=== PATIENT | male | born 1940 | race Caucasian/White ===

== ENCOUNTER 2024-12-16 12:50 | Outpatient (AMB) | payer MEDICARE, OTHER, SELFPAY ==
--- NOTE | 2024-12-16 12:52 | A.SPINEOV_ITS ---
Vital Signs 12/16/24 13:08 Height 6 ft 2 in Weight 221 lb BMI 28.4 Intake Visit Reasons: back pain Intake Note: Mr. Lay is here today c/o Low back pain/Difficulty walking. Local Truck Driver Required: No Allergies atorvastatin Allergy (Severe, Verified 12/16/24 13:11) Bodyache and Pain Physical Exam Vital Signs: BMI result Body Mass Index 28.4 Assessment & Plan Assessment & Plan (1) Balance disorder: Code(s): R26.89 - Other abnormalities of gait and mobility Category: Medical (2) Back pain: Code(s): M54.9 - Dorsalgia, unspecified Category: Medical Qualifiers: Back pain location: low back pain Chronicity: chronic Back pain laterality: midline Sciatica presence: without sciatica Qualified Code(s): M54.50 - Low back pain, unspecified; G89.29 - Other chronic pain Plan Dear colleague Thank you for referring John Lay to the office today with a chief complaint of balance problems. HPI: This 84-year-old male he is having to complains. The 1st on his central back pain in the lumbosacral area without radiation. The pain is always present independent of activity. The 2nd complaint is balance problems. He needs to hold onto the tellez when walking. When he gets up from a chair he may fall due to balance disturbances. He denies numbness in hands or feet. His memory is slightly decreased according to his . He might have urgency for urination. Physical Exam: Pleasant male. 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 He ambulates with a wide-based gait but interestingly Romberg test is negative. Propriocepsis is intact. No pathological reflexes. Motor exam is 5/5. Radiological Studies: MRI done at [facility] of the cervical, thoracic and lumbar spine show no spinal cord compression. There is multilevel degenerative disc disease and there is tpks-kg-wchpnycm stenosis L3-4 and L4-5. Impression/Plan: This 84-year-old male suffering from a central lumbosacral back pain that is affecting his quality of life. I do not see a surgical solution for this symptom. I will refer him to our pain management team for further evaluation. I am going to order a CT of the brain to rule out normal- pressure hydrocephalus. He will return to my clinic after the CT is done. Thank you for allowing me to participate in your patients care. total time spent was 50 minutes in counseling ,coordination of plan, personal review of imaging, surgical decision making and subsequent plan Lanre Masters MD, PhD Spine Fellowship Trained Neurosurgeon Director, [facility] Orders: Orders CT head/brain wo IV con Today R26.89 - Other abnormalities of gait and mobility Referrals Pain Management Referral G89.29 - Other chronic pain, M54.50 - Low back pain, unspecified Coding Level of Care Code New Pt Level 4 (31809) Diagnoses Balance disorder R26.89 Chronic midline low back pain without sciatica M54.50; G89.29 Back pain location: low back pain Chronicity: chronic Back pain laterality: midline Sciatica presence: without sciatica
[2024-12-16 13:08] VITALS: BMI 28.4
--- OUTSIDE RECORDS SUMMARY | 2024-12-16 15:14 | XMS_ITS | Continuity of Care Document ---
Author Organization [facility] Address [address] [place] [address]- Care Team Providers Care Systems Engineer Name Role Phone Guanakito MCCABE, Madeleine Carranza Primary Care Physician [place] [facility] [place]): 11/09/24 - 11/16/24 [facility] [address] [place], [place] [address] Attending Physician: Smita Alvarado MD Referring Physician: Madeleine Calabrese MD, V Encounter Type: Office Visit Allergies, Adverse Reactions, Alerts Substance Criticality Severity Reaction Reaction Severity Status atorvastatin Active Immunizations Given and Recorded Vaccine Date Status Refusal Reason pneumococcal 20-valent conjugate vaccine 07/03/23 Recorded influenza virus vaccine, inactivated 07/03/23 Jm rded influenza virus vaccine, inactivated 07/09/22 Jm rded influenza virus vaccine, inactivated 08/04/21 Jm rded influenza virus vaccine, inactivated 05/23/20 Jm rded influenza virus vaccine, inactivated 06/30/19 Jm rded influenza virus vaccine, inactivated 07/14/18 Jm rded influenza virus vaccine, inactivated 06/27/16 Jm rded influenza virus vaccine, inactivated 08/10/15 Jm rded influenza virus vaccine, inactivated 08/03/14 Jm rded influenza virus vaccine, inactivated 07/13/12 Jm rded influenza virus vaccine, inactivated 07/04/11 Jm rded influenza virus vaccine, inactivated 08/05/10 Jm rded influenza virus vaccine, inactivated 06/11/09 Jm rded influenza virus vaccine, inactivated 09/23/07 Jm rded SARS-CoV-2(COVID-19)mRNA-LNP vac([id number]) 07/03/23 Recorded tetanus-diphtheria toxoids (Td) 1 04/07/23 Given tetanus-diphtheria toxoids (Td) 10/28/12 Recorded [id number] 12y+ bivalent booster vax 07/09/22 Recorded SARS-CoV-2 (COVID-19) mRNA BNT-162b2 vac 07/06/21 Recorded SARS-CoV-2 (COVID-19) mRNA BNT-162b2 vac 11/20/20 Recorded SARS-CoV-2 (COVID-19) mRNA BNT-162b2 vac 10/30/20 Recorded pneumococcal 13-valent vaccine 12/29/14 Recorded Zoster Vaccine Live 05/25/12 Recorded pneumococcal 23-valent vaccine 01/13/07 Recorded hepatitis B adult vaccine 04/03/05 Recorded 1Result Comment: [facility] [address]-2 Medications aspirin 81 mg oral delayed release tablet 81 mg, By Mouth, Daily, # 30 tablet, Refills 0, Tot. Refills 0, Maintenance, 09/23/24 9:17:00 AM EST, Route to Pharmacy Electronically, [facility] [place] [facility], Partial fill upon patient request if the prescription is for a schedule II opioid drug., 187, cm, 08/15/24 13:58:00 EST, Height, 104.9, kg, 09/19/24 21:08:00 EST, Dry Weight Start Date: 09/23/24 Status: Ordered Quantity: 30.0 Unit: tablet Repeat number: 1 bisacodyl 10 mg rectal suppository 1 supp = 10 mg, Rectally, Daily, PRN for constipation, # 10 supp, 1 Refills, Maintenance, 04/18/24 12:03:00 PM EDT, Suppository, [facility]/pharmacy #[id number], Partial fill upon patient request if the prescription is for a schedule II opioid drug., 187, cm, 04/14/24 10:44:00 EDT, Height, 101, kg, 06/04/23 13:45:00 EDT, Dry Weight Start Date: 04/18/24 Status: Ordered Quantity: 10.0 Unit: supp Repeat number: 2 ferrous sulfate 325 mg oral tablet 1 tablet = 325 mg, By Mouth, Every other day, # 90 tablet, 0 Refills, Maintenance, 09/23/24 10:18:00 AM EST, Tablet, [facility] [facility], Partial fill upon patient request if the prescription isfor a schedule II opioid drug., 187, cm, 08/15/24 13:58:00 EST, Height, 104.9, kg, 09/19/24 21:08:00 EST, Dry Weight Start Date: 09/23/24 Status: Ordered Quantity: 90.0 Unit: tablet Repeat number: 1 glimepiride 2 mg oral tablet See Instructions, TAKE 1 TABLET BY MOUTH DAILY WITH THE FIRST MEAL OF THE DAY, # 90 tablet, 3 Refills, Maintenance, 11/08/24 11:30:00 AM EST, [facility], 186.8, cm, 10/13/24 7:30:00EST, Height, 103, kg, 10/13/24 7:30:00 EST, Dry Weight Start Date: 11/08/24 Status: Ordered Quantity: 90.0 Unit: tablet Repeat number: 1 ICaps AREDS 2 0 Refills, Maintenance, 05/21/22 10:32:00 AM EDT, Partial fill upon patient request if the prescription is for a schedule II opioid drug. Start Date: 05/21/22 Status: Ordered Repeat number: 1 losartan 25 mg oral tablet 1 tablet, By Mouth, Daily, # 90 tablet, 1 Refills, Maintenance, 10/05/24 7:18:00 AM EST, [facility], 187, cm, 08/15/24 13:58:00 EST, Height, 104.9, kg, 09/19/24 21:08:00 EST, Dry Weight Start Date: 10/05/24 Status: Ordered Quantity: 90.0 Unit: tablet Repeat number: 1 pantoprazole 40 mg oral delayed release tablet 1 tablet = 40 mg, By Mouth, Daily, # 90 tablet, 0 Refills, Maintenance, 11/09/24 2:50:00 PM EST, EC Tablet, expedited request - healing gastric ulcer. needed for 3 mths till repeat endoscopy done, 186.8, cm, 11/09/24 13:21:00 EST, Height, 108.8, kg, 11/09/24 13:21:00 EST, Dry Weight Start Date: 11/09/24 Stop Date: 02/07/25 Status: Ordered Quantity: 90.0 Unit: tablet Repeat number: 1 Potassium Chloride (Syb-Usjw-Eun 10) 10 mEq oral tablet, extended release 1 tablet, By Mouth, 2 times a day, THEN STOP UNTIL RECHECKING POTASSIUM AGAIN., # 60 tablet, 0 Refills, Maintenance, 11/09/24 11:22:00 AM EST, [facility], 186.8, cm, 10/13/24 7:30:00 EST, Height, 103, kg, 10/13/24 7:30:00 EST, Dry Weight Start Date: 11/09/24 Stop Date: 12/09/24 Status: Ordered Quantity: 60.0 Unit: tablet Repeat number: 1 rosuvastatin 20 mg oral tablet 1 tablet, By Mouth, Daily, # 90 tablet, 3 Refills, Maintenance, 03/30/24 9:46:00 AM EDT, [facility], 187, cm, 12/14/23 9:24:00 EDT, Height, 101, kg, 06/04/23 13:45:00 EDT, Dry Weight Start Date: 03/30/24 Status: Ordered Quantity: 90.0 Unit: tablet Repeat number: 1 Voltaren 1% topical gel 1 application, Topically, 3 times a day, PRN for pain, # 100 Gm, 0 Refills, Maintenance, 10/11/21 5:03:00 PM EST, Gel, [facility]/pharmacy #[id number], Partial fill upon patient request if the prescription is for a schedule II opioid drug., 1 application Topically 3 times a day,PRN:for pain, 188, cm, 10/11/21 15:13:00 EST, Height Start Date: 10/11/21 Status: Ordered Quantity: 100.0 Unit: g Repeat number: 1 Indication: Dorsalgia, unspecified Problem List Condition Confirmation Course Effective Dates Status H ealth Status Informant Ascending aortic aneurysm Confirmed Active Reflux gastritis, esophagitis Confirmed Active Other constipation Confirmed Active Coronary artery disease Confirmed Active Erectile dysfunction Confirmed Active Other fatigue Confirmed Active First degree heart block Confirmed Active Gout Confirmed Active Hypercoagulable state Confirmed Active HTN (hypertension) Confirmed Active Nephrolithiasis Confirmed Active Mixed hyperlipidemia Confirmed Active Obese class I Confirmed Active OA (osteoarthritis) Confirmed Active Paroxysmal a-fib Confirmed Active Health care maintenance Confirmed Active S/P hernia repair Confirmed Active Rosacea Confirmed Active Spinal stenosis, multilevel Confirmed Active Type 2 diabetes mellitus Confirmed Active Unsteady gait when walking Confirmed Active Vital Signs Most recent to oldest [Reference Range]: 1 Height 186.8 cm (11/09/24 1:21 PM) Weight 108.8 kg (11/09/24 1:21 PM) Oxygen Saturation [94-100 %] 96 % (11/09/24 1:21 PM) Pulse Rate [55-90 bpm] 74 bpm (11/09/24 1:21 PM) Body Mass Index [18.5-24.99 kg/m2] 31.18 kg/m2 *>HHI* (11/09/24 1:21 PM) Blood Pressure [90-138/55-84 mm Hg] 169/ 87mm Hg *H* (11/09/24 1:21 PM) Mode of Delivery (Oxygen) Room air (11/09/24 1:21 PM) Blood pressure sites Arm, right (11/09/24 1:21 PM) Dry Weight 108.8 kg (11/09/24 1:21 PM) Weight Obtained Via Standing scale (11/09/24 1:21 PM) Dry Weight Obtained Via Standing scale (11/09/24 1:21 PM) Social History Social History Type Response Smoking Status Never smoker entered on: 12/18/17 Sex Sex Representation Male (finding) Note * Anh Briseno: PERFORM Event Display: Patient Education/Instruction Authored Date: [id number] Ambulatory Adult Visit Summary [facility] [address] [place] [address] Name: ZELDA YEE : 1940?? Visit: 11/09/2024 13:11?? Ambulatory Visit Instructions ?? Your Care Team Primary Care Provider Guanakito MCCABE, Madeleine Carranza? This Visit Provider Jenny MCCABE , Smita Sheth Vitals Signs Pulse Rate: 74 bpm Height: 186.8 cm Systolic Blood Pressure:??169 mm Hg??High Weight: 108.8 kg Diastolic Blood Pressure:??87 mm Hg??High Body Mass Index:??31.18 kg/m2??Critical Oxygen Saturation: 96 % Body surface area: 2.38 What to do next Instructions From Your Provider resume Losartan 25 mg daily check BP at home goal < 140/90? hold eliquis before procedure ?? Pantoprazole- antacid for 3 mths?? discuss refills with at [facility] in december?? Scheduled Follow-Up Appointments Thursday 1:00 PM EDT ?? With: Guanakito MCCABE, Madeleine Carranza Where: [facility] [address] [place] [address]- Status: Pending Thursday 11:00 AM EDT ?? Where: [facility] Status: Pending Future Orders Hemoglobin A1C (Monitoring) - Once, *Est. 01/13/24 +/- 21 days, Single or Recurring Future Order?? Complete Urinalysis/Reflex Culture (Urinalysis Complete/Reflex Culture) - Routine, Once, 04/18/24 12:04:00 EDT, Single or Recurring Future Order, [facility], Urine?? Medications The list below reflects the information in our records and provided by you today along with any changes made during this visit. Please continue your medications until treatment is completed or stopped by your provider. If this is different from the information you have or there are other questions,please contact the prescribing provider. What How Much When Why Instructions Changed Pantoprazole (pantoprazole 40 mg oral delayed release tablet) 1 tab(s) Oral Daily Duration: 90 Days Pickup at [facility] Unchanged Aspirin (aspirin 81 mg oral delayed release tablet) 81 Milligram Oral Daily Unchanged Bisacodyl (bisacodyl 10 mg rectal suppository) 1 suppository(ies) Per rectum Daily as needed for for constipation Unchanged Diclofenac Topical (Voltaren 1% topical gel) 1 santiago Topically 3 times a day as needed for for pain Back pain Unchanged Ferrous Sulfate (ferrous sulfate 325 mg oral tablet) 1 tab(s) Oral Every other day Unchanged Glimepiride (glimepiride 2 mg oral tablet) See instructions TAKE 1 TABLET BY MOUTH DAILY WITH THE FIRST MEAL OF THE DAY ?? Unchanged Losartan (losartan 25 mg oral tablet) 1 tab(s) Oral Daily Unchanged Multivitamin With Minerals (ICaps AREDS 2) Unchanged Potassium Chloride (Potassium Chloride (Pkr-Jara-Ztq 10) 10 mEq oral tablet, extended release) 1 tab(s) Oral Twice a day Duration: 30 Days THEN STOP UNTIL RECHECKING POTASSIUM AGAIN. ?? Unchanged Rosuvastatin (rosuvastatin 20 mg oral tablet) 1 tab(s) Oral Daily Pharmacy Information [facility]: [address] [place], [place] [address] [place], [place] [id number] [phone] Medications and Immunizations Administered Medications Given During Visit No medications given during this visit.?? Allergies (NKA means No Known Allergies) atorvastatin Common Emergency Awareness Tips IS IT A STROKE? Act FAST and Check for these signs: FACE Does the face look uneven? ARM Does one arm drift down? SPEECH Does their speech sound strange? TIME Call at any sign of stroke ?? Heart Attack Signs Chest discomfort: Most heart attacks involve discomfort in the center of the chest and lasts more than a few minutes, or goes away and comes back. It can feel like uncomfortable pressure, squeezing, fullness or pain. Discomfort in upper body: Symptoms can include pain or discomfort in one or both arms, back, neck, jaw or stomach. Shortness of breath: With or without discomfort. Other signs: Breaking out in a cold sweat, nausea, or lightheaded. Remember, MINUTES DO MATTER. If you experience any of these heart attack warning signs, call to get immediate medical attention! ?? Smoking can increase your chances of developing chronic health problems and can cause harmful effects to other family members in your house. If you smoke, you are strongly encouraged to quit. Please call [employer] at [phone] or [phone] ([phone]) or log in to [email or web address] for referrals to smoking cessation programs. ?? The National Suicide Prevention Hotline is available 20/04 if you or someone you know needs to find a reason to keep living. By calling 4-062-779-[employer] (8127) you'll be connected to a skilled, trained counselor at a crisis center in your area. [facility] iFlipd Portal You can view and manage your care through the patient portal or by using a health care santiago of your choosing. [employer] is a website that allows you to securely view your medical information including your hospital discharge summary, office visit summaries, medications and follow-up visits. You can also request appointments, renew medications, and request access to your medical information using a health care santiago of your choosing, or just ask a question. You can enroll at [email or web address] or register during your next office visit. [facility], in keeping with [facility] guidance, no longer requires face masks for staff, patientsor visitors in most situations. Similiar to time spent indoors at other locations, there is the chance that you were exposed to repiratory viruses during your time with us (such as flu or COVID-19). If you develop symptoms concerning for a viral respiratory infection, please seek testing (and treatment if indicated) from your medical provider or home test kit. ?? Disclaimer: The information provided is of a general nature and is intended to be used in conjunction with the recommendations and advice of your health care practitioner. Every effort has been made to ensure that the information provided is accurate and complete at the time it is provided to you however, as your needs change, or, as new information becomes available, different or additional instructions may be required. ?? If you have questions, please consult with your primary care provider or pharmacist, as appropriate. This information is not intended to serve as substitution for assessment and evaluation by a qualified health care provider. If you do not have a primary care provider, you may find a [facility] provider by calling [facility] Link at [phone]. Patient Care team information Care Team Personnel Name: Marlin Louis RN Position: [facility] RN Member Role: Primary Care Nurse Name: Rosemary Peck RN Position: [facility] SN RN Member Role: Primary Care Nurse Name: Madeleine Calabrese MD, V Position: [facility] Physician - Primary Care Member Role: PCP Address: [address] [place] [id number] Telecom: Name: Lucille Stevens RN Position: [facility] RN Member Role: Primary Care Nurse Name: Leann Fletcher RN Position: [facility] SN RN Member Role: Primary Care Nurse Name: Vignesh Heaton MD Position: [facility] Renal MD Member Role: Lifetime Consulting Physician Address: [address] [place], [place] [id number] [facility] [place] [address]- Telecom: Name: Tati Meyer RN Position: S RN Member Role: Primary Care Nurse Name: Abdulaziz Ahuja RN Position: S RN Member Role: Primary Care Nurse Care Team Related Persons Name: XUAN MUJICA Name: IVETT YEE Insurance Providers Guarantor name: ZELDA Moerae Matrix Information #: 2 Payer: MEDICARE PART B OUTPT Member Number: [id number] Policy Number: MARY Group Number: MARY Health Plan Information #: 1 Payer: Member Number: [id number] Policy Number: MARY Group Number: [id number]
--- OUTSIDE RECORDS SUMMARY | 2024-12-16 15:14 | XMS_ITS | Continuity of Care Document ---
Author Organization [facility] Address [address] [place] [address]- Care Team Providers Care Privacy Specialist Name Role Phone Guanakito MCCABE, Madeleine Carranza Primary Care Physician [phone] Encounter [facility] Date(s): 11/09/24 - 12/09/24 [facility] [address] [place], [place] [address] Attending Physician: AdmAdal santiago Admitting Physician: AdmtrAdal Referring Physician: Admtr, Ar8 Encounter Type: Triage Allergies, Adverse Reactions, Alerts Substance Criticality Severity [...] virus vaccine, inactivated 09/23/07 Jm rded SARS-CoV-2(COVID-19)mRNA-LNP vac([id number]) 07/03/23 Recorded tetanus-diphtheria toxoids (Td) 1 04/07/23 Given tetanus-diphtheria toxoids (Td) 10/28/12 Recorded [id number] 12y+ bivalent booster vax 07/09/22 Recorded SARS-CoV-2 (COVID-19) mRNA BNT-162b2 vac 07/06/21 Recorded SARS-CoV-2 (COVID-19) mRNA BNT-162b2 vac 11/20/20 Recorded SARS-CoV-2 (COVID-19) mRNA BNT-162b2 vac 10/30/20 Recorded pneumococcal 13-valent vaccine 12/29/14 Recorded Zoster Vaccine Live 05/25/12 Recorded pneumococcal 23-valent vaccine 01/13/07 Recorded hepatitis B adult vaccine 04/03/05 Recorded 1Result Comment: [facility] [place] 2] [id number] Medications aspirin 81 mg oral delayed release tablet 81 mg, By Mouth, Daily, # 30 tablet, Refills 0, Tot. Refills 0, Maintenance, 09/23/24 9:17:00 AM EST, Route to Pharmacy Electronically, [facility], Partial fill upon patient request if [...] Refills, Maintenance, 04/18/24 12:03:00 PM EDT, Suppository, [facility]/pharmacy #[id number], Partial fill upon patient request [...] Refills, Maintenance, 09/23/24 10:18:00 AM EST, Tablet, [facility] 3, Partial fill upon patient request if [...] 3 Refills, Maintenance, 11/08/24 11:30:00 AM EST, [facility], 186.8, cm, 10/13/24 7:30:00EST, Height, [...] 1 Refills, Maintenance, 10/05/24 7:18:00 AM EST, [facility], 187, cm, 08/15/24 13:58:00 EST, [...] Unit: tablet Repeat number: 1 Potassium Chloride (Ttu-Rilt-Ioo 10) 10 mEq oral tablet, extended release 1 tablet, By Mouth, 2 times a day, THEN STOP UNTIL RECHECKING POTASSIUM AGAIN., # 60 tablet, 0 Refills, Maintenance, 11/09/24 11:22:00 AM EST, [facility], 186.8, cm, 10/13/24 7:30:00 EST, Height, 103, kg, 10/13/24 7:30:00 EST, Dry Weight Start Date: 11/09/24 Stop Date: 12/09/24 Status: Ordered Quantity: 60.0 Unit: tablet Repeat number: 1 rosuvastatin 20 mg oral tablet 1 tablet, By Mouth, Daily, # 90 tablet, 3 Refills, Maintenance, 03/30/24 9:46:00 AM EDT, [facility], 187, cm, 12/14/23 9:24:00 EDT, Height, 101, kg, 06/04/23 13:45:00 EDT, Dry Weight Start Date: 03/30/24 Status: Ordered Quantity: 90.0 Unit: tablet Repeat number: 1 Voltaren 1% topical gel 1 application, Topically, 3 times a day, PRN for pain, # 100 Gm, 0 Refills, Maintenance, 10/11/21 5:03:00 PM EST, Gel, [facility]/pharmacy #[id number], Partial fill upon patient request [...] Active Unsteady gait when walking Confirmed Active Social History Social History Type Response Smoking Status Never smoker entered on: 12/18/17 Sex Sex Representation Male (finding) MR Spine * Event Display: MRI Spine Authored Date: * Event Display: MRI Spine Authored Date: Patient Care team information Care Team Personnel Name: Marlin Louis RN Position: S RN Member Role: Primary Care Nurse Name: Rosemary Peck RN Position: S SN RN Member Role: Primary Care Nurse Name: Madeleine Calabrese MD, V Position: [facility] Physician - Primary Care Member Role: PCP Address: [address] [place] [address] Telecom: Name: Lucille Stevens RN Position: S RN Member Role: Primary Care Nurse Name: Leann Fletcher RN Position: [facility] SN RN Member Role: Primary Care Nurse Name: Vignesh Heaton MD Position: [facility] Renal MD Member Role: Lifetime Consulting Physician Address: [address] [place] [address] [address] [facility] [address] Telecom: Name: Tati Meyer RN Position: S RN Member Role: Primary Care Nurse Name: Abdulaziz Ahuja RN Position: S RN Member Role: Primary Care Nurse Care Team Related Persons Name: XUAN MUJICA Name: IVETT YEE Insurance Providers Guarantor name: ZELDA YEE Health Plan Information #: 1 Payer: NA Member Number: NA Policy Number: NA Group Number: NA Health Plan Information #: 2 Payer: MEDICARE PART B OUTPT Member Number: NA Policy Number: NA Group Number: NA
--- OUTSIDE RECORDS SUMMARY | 2024-12-16 15:14 | XMS_ITS | Continuity of Care Document ---
Author Organization [facility] Address [address] [place] [address]- Care Team Providers Care Nuisance Wildlife Control Operator Name Role Phone Madeleine Calabrese MD, V Primary Care Physician [phone] [place] [facility] [place] 12/01/24 [facility] [address] [place] [address]- Encounter Type: Triage Allergies, Adverse Reactions, Alerts [...] virus vaccine, inactivated 09/23/07 Jm rded SARS-CoV-2(COVID-19)mRNA-LNP vac([id number]) 07/03/23 Recorded tetanus-diphtheria toxoids (Td) 1 04/07/23 Given tetanus-diphtheria toxoids (Td) 10/28/12 Recorded [id number] 12y+ bivalent booster vax 07/09/22 Recorded SARS-CoV-2 (COVID-19) mRNA BNT-162b2 vac 07/06/21 Recorded SARS-CoV-2 (COVID-19) mRNA BNT-162b2 vac 11/20/20 Recorded SARS-CoV-2 (COVID-19) mRNA BNT-162b2 vac 10/30/20 Recorded pneumococcal 13-valent vaccine 12/29/14 Recorded Zoster Vaccine Live 05/25/12 Recorded pneumococcal 23-valent vaccine 01/13/07 Recorded hepatitis B adult vaccine 04/03/05 Recorded 1Result Comment: [facility] [id number] Medications aspirin 81 mg oral delayed release tablet 81 mg, By Mouth, Daily, # 30 tablet, Refills 0, Tot. Refills 0, Maintenance, 09/23/24 9:17:00 AM EST, Route to Pharmacy Electronically, [facility] [place] [facility], Partial fill upon patient request [...] Refills, Maintenance, 04/18/24 12:03:00 PM EDT, Suppository, [facility]/pharmacy #[id number], Partial fill upon patient request if [...] Refills, Maintenance, 09/23/24 10:18:00 AM EST, Tablet, [facility], Partial fill upon patient request [...] 3 Refills, Maintenance, 11/08/24 11:30:00 AM EST, [facility], 186.8, cm, 10/13/24 7:30:00EST, Height, 103, kg, [...] 1 Refills, Maintenance, 10/05/24 7:18:00 AM EST, [facility], 187, cm, 08/15/24 13:58:00 EST, Height, 104.9, [...] Unit: tablet Repeat number: 1 Potassium Chloride (Icc-Clwz-Sqo 10) 10 mEq oral tablet, extended release 1 tablet, By Mouth, 2 times a day, THEN STOP UNTIL RECHECKING POTASSIUM AGAIN., # 60 tablet, 0 Refills, Maintenance, 11/09/24 11:22:00 AM EST, [facility], 186.8, cm, 10/13/24 7:30:00 EST, Height, 103, kg, 10/13/24 7:30:00 EST, Dry Weight Start Date: 11/09/24 Stop Date: 12/09/24 Status: Ordered Quantity: 60.0 Unit: tablet Repeat number: 1 rosuvastatin 20 mg oral tablet 1 tablet, By Mouth, Daily, # 90 tablet, 3 Refills, Maintenance, 03/30/24 9:46:00 AM EDT, [facility], 187, cm, 12/14/23 9:24:00 EDT, Height, 101, kg, 06/04/23 13:45:00 EDT, Dry Weight Start Date: 03/30/24 Status: Ordered Quantity: 90.0 Unit: tablet Repeat number: 1 Voltaren 1% topical gel 1 application, Topically, 3 times a day, PRN for pain, # 100 Gm, 0 Refills, Maintenance, 10/11/21 5:03:00 PM EST, Gel, [facility]/pharmacy #[id number], Partial fill upon patient request if [...] on: 12/18/17 Sex Sex Representation Male (finding) Patient Care team information Care Team Personnel Name: Marlin Louis RN Position: [facility] RN Member Role: Primary Care Nurse Name: Rosemary Peck RN Position: [facility] SN RN Member Role: Primary Care Nurse Name: Madeleine Calabrese MD, V Position: [facility] Physician - Primary Care Member Role: PCP Address: [address] [address]- Telecom: Name: Lucille Stevens RN Position: S RN Member Role: Primary Care Nurse Name: Leann Fletcher RN Position: [facility] SN RN Member Role: Primary Care Nurse Name: Vignesh Heaton MD Position: [facility] Renal MD Member Role: Lifetime Consulting Physician Address: [address] [facility] [address] [facility] [place] [address]- Telecom: Name: Tati Meyer RN Position: S [...]
--- OUTSIDE RECORDS SUMMARY | 2024-12-16 15:14 | XMS_ITS | Continuity of Care Document ---
Author Organization [facility] ter Address [address] [place] [address]- Care Team Providers Care Anime Artist Name Role Phone Guanakito MCCABE, Madeleine Carranza Primary Care Physician Encounter [facility] [place] Date(s): 10/21/24 - 11/20/[address] [address] Attending Physician: Meagan Belcher MD Admitting Physician: Meagan Belcher MD Encounter Type: Preadmit Daystay Allergies, Adverse Reactions, Alerts Substance Criticality Severity [...] virus vaccine, inactivated 09/23/07 Jm rded SARS-CoV-2(COVID-19)mRNA-LNP vac(vga400) 07/03/23 Recorded tetanus-diphtheria toxoids (Td) 1 04/07/23 Given tetanus-diphtheria toxoids (Td) 10/28/12 Recorded [id number] 12y+ bivalent booster vax 07/09/22 Recorded SARS-CoV-2 (COVID-19) mRNA BNT-162b2 vac 07/06/21 Recorded SARS-CoV-2 (COVID-19) mRNA BNT-162b2 vac 11/20/20 Recorded SARS-CoV-2 (COVID-19) mRNA BNT-162b2 vac 10/30/20 Recorded pneumococcal 13-valent vaccine 12/29/14 Recorded Zoster Vaccine Live 05/25/12 Recorded pneumococcal 23-valent vaccine 01/13/07 Recorded hepatitis B adult vaccine 04/03/05 Recorded 1Result Comment: [facility] [id number] Medications aspirin 81 mg oral delayed release tablet 81 mg, By Mouth, Daily, # 30 tablet, Refills 0, Tot. Refills 0, Maintenance, 09/23/24 9:17:00 AM EST, Route to Pharmacy Electronically, [facility], Partial fill upon patient request if [...] Refills, Maintenance, 04/18/24 12:03:00 PM EDT, Suppository, [facility]/pharmacy #[id number], Partial fill upon patient request [...] Refills, Maintenance, 09/23/24 10:18:00 AM EST, Tablet, [facility] [facility], Partial fill upon patient [...] 3 Refills, Maintenance, 11/08/24 11:30:00 AM EST, [facility], 186.8, cm, 10/13/24 7:30:00EST, Height, 103, [...] 1 Refills, Maintenance, 10/05/24 7:18:00 AM EST, [facility], 187, cm, 08/15/24 13:58:00 EST, Height, [...] Unit: tablet Repeat number: 1 Potassium Chloride (Cwx-Zihe-Dmh 10) 10 mEq oral tablet, extended release 1 tablet, By Mouth, 2 times a day, THEN STOP UNTIL RECHECKING POTASSIUM AGAIN., # 60 tablet, 0 Refills, Maintenance, 11/09/24 11:22:00 AM EST, [facility], 186.8, cm, 10/13/24 7:30:00 EST, Height, 103, kg, 10/13/24 7:30:00 EST, Dry Weight Start Date: 11/09/24 Stop Date: 12/09/24 Status: Ordered Quantity: 60.0 Unit: tablet Repeat number: 1 rosuvastatin 20 mg oral tablet 1 tablet, By Mouth, Daily, # 90 tablet, 3 Refills, Maintenance, 03/30/24 9:46:00 AM EDT, [facility], 187, cm, 12/14/23 9:24:00 EDT, Height, 101, kg, 06/04/23 13:45:00 EDT, Dry Weight Start Date: 03/30/24 Status: Ordered Quantity: 90.0 Unit: tablet Repeat number: 1 Voltaren 1% topical gel 1 application, Topically, 3 times a day, PRN for pain, # 100 Gm, 0 Refills, Maintenance, 10/11/21 5:03:00 PM EST, Gel, [facility]/pharmacy #[id number], Partial fill upon patient request [...] Nurse Name: Madeleine Calabrese MD, V Position: [facility] Physician - Primary Care Member Role: PCP Address: [address] [place] [address]- Telecom: Name: Lucille Stevens RN Position: S RN Member Role: Primary Care Nurse Name: Leann Fletcher RN Position: [facility] SN RN Member Role: Primary Care Nurse Name: Vignesh Heaton MD Position: [facility] Renal MD Member Role: Lifetime Consulting Physician Address: [address] [place], [place] [id number] [facility] [place] [address]- Telecom: Name: Tati Meyer RN Position: S RN Member Role: Primary Care Nurse Name: Abdulaziz Ahuja RN Position: S RN Member Role: Primary Care Nurse Care Team Related Persons Name: XUAN MUJICA Name: IVETT YEE Insurance Providers Guarantor name: ZELDA JOSELITO Health Plan Information #: 1 Payer: NA Member Number: [id number] Policy Number: NA Group Number: [id number] Health Plan Information #: 2 Payer: NA Member Number: [id number] Policy Number: NA Group Number: NA Health Plan Information #: 3 Payer: MEDICARE PART B OUTPT Member Number: NA Policy Number: NA Group Number: NA
== END 2024-12-16 14:04 | disposition home or self-care (01) ==
PROVIDERS: PCP Internal Medicine; Visit Provider Neurological Surgery
DX: R26.89 Other abnormalities of gait and mobility (principal); M54.50 Low back pain, unspecified; G89.29 Other chronic pain
CPT/HCPCS: 99204

== ENCOUNTER → 2024-12-16 12:50 | Outpatient (BNVA) | payer OTHER, MEDICARE, SELFPAY | PROVIDERS: PCP Internal Medicine; Visit Provider Neurological Surgery | DX: R26.89 Other abnormalities of gait and mobility (principal); M54.50 Low back pain, unspecified; G89.29 Other chronic pain | CPT/HCPCS: 99202 ==

== ENCOUNTER 2025-01-13 07:38 | Outpatient (REF) | payer MEDICARE, OTHER, SELFPAY ==
--- NOTE | ~2025-01-13 | CT_ITS ---
CLINICAL HISTORY: R26.89 - Other abnormalities of gait and mobility CT head without contrast Comparison: None Findings: No intra-axial mass, midline shift, hydrocephalus, or acute hemorrhage. There is moderate diffuse atrophy and white matter change possibly related to chronic microvascular ischemia. There is no sinus or mastoid fluid. The orbits are unremarkable. No skull fracture. IMPRESSION: 1. No acute intracranial findings. This document has been electronically signed by: Abdulaziz Ott MD on 01/14/2025 09:01:31
== END 2025-01-13 07:39 | disposition home or self-care (01) ==
LOC: HO.CT 07:38
PROVIDERS: PCP Internal Medicine; Visit Provider Neurological Surgery
DX: R26.89 Other abnormalities of gait and mobility (principal); G91.2 (Idiopathic) normal pressure hydrocephalus
CPT/HCPCS: 70450; 99212

== ENCOUNTER → 2025-01-13 07:47 | Outpatient (BNV) | payer MEDICARE, OTHER, SELFPAY | PROVIDERS: PCP Internal Medicine; Visit Provider Specialist | DX: R26.89 Other abnormalities of gait and mobility (principal) | CPT/HCPCS: 70450 ==

== ENCOUNTER 2025-01-13 08:47 | Outpatient (AMB) | payer MEDICARE, OTHER, SELFPAY ==
--- NOTE | 2025-01-13 09:05 | A.SPINEOV_ITS ---
Intake Visit Reasons: CT f/u same day f/u Intake Note: Mr. Lay is here today to discuss the results of his CT Scan. Salesperson Used Cars Required: No Allergies atorvastatin Allergy (Severe, Verified 12/16/24 13:11) Bodyache and Pain Assessment & Plan Assessment & Plan (1) Normal pressure hydrocephalus syndrome: Code(s): G91.2 - (Idiopathic) normal pressure hydrocephalus Category: Medical Plan: Dear colleague, On 01/13/2025 I saw for follow-up John Lay. He was originally seen for chronic back pain for which there is no surgical cause. I referred him to our pain management team for further evaluation. However during the consult I noticed that the patient has memory problems and walks with a wide-based gait. The symptoms were suspicious for normal-pressure hydrocephalus and therefore ordered a CT scan of the brain which was reviewed today and indeed show a large ventricular system. I discussed the case with primary care physician Dr. Calabrese and I made a referral to [facility] for further evaluation. This patient may be a candidate for a AIRCRAFT CLEANING SUPERVISOR shunt in the near future. I discussed the diagnosis with the patient and his and they will bring the CT scan to the appointment. I spent 25 minutes in his consult for evaluation, review of imaging and discussing plan of care with the patient and his primary care physician. Lanre Masters MD, PhD Spine Fellowship Trained Neurosurgeon Director, [facility] Orders: Referrals Neurology Referral G91.2 - (Idiopathic) normal pressure hydrocephalus Coding Level of Care Code Est Pt Level 3 (00331) Diagnoses Normal pressure hydrocephalus syndrome G91.2
== END 2025-01-13 09:57 | disposition home or self-care (01) ==
LOC: HO.HNS 08:47
PROVIDERS: PCP Internal Medicine; Visit Provider Neurological Surgery
DX: G91.2 (Idiopathic) normal pressure hydrocephalus (principal)
CPT/HCPCS: 99213

== ENCOUNTER 2025-01-18 14:34 | Outpatient (AMB) | payer MEDICARE, OTHER, SELFPAY ==
--- NOTE | 2025-01-18 14:36 | A.OFFVIS_ITS ---
Vital Signs 01/18/25 14:37 Height 6 ft 2 in Weight 233 lb BMI 29.9 BP 127/75 Blood Pressure Location Lt brachial Position Sitting Respiration 16 Pulse 69 Pulse Source Pulse Oximeter Pulse Oximetry (%) 95 Oxygen Delivery Method Room Air Intake Visit Reasons: Low back pain, unspecified Take Up Supervisor Required: No Allergies atorvastatin Allergy (Severe, Verified 01/18/25 14:39) Bodyache and Pain HPI Comments Details: John is very pleasant 84 years old gentleman who presents in my office with complains on lower back pain. He went for consult with Dr. Masters, nothing was found neurosurgical to be significant cause of for operation. However waddling gait and dizziness was noted. Patient was sent for CT scan and it demonstrated hydrocephalus. The patient is waiting for appointment with cranial neurosurgeon in [facility]. Reports that his pain started 3 years ago. He has somehow believes that the cause of this pain is heavy lifting while working at [employer]. He is retired air [employer] . He denies radiation of the pain in bilateral lower extremities. He reports that he can sleep normally but he can not function normally he reports that heat applications topical medications and oral medications make his pain better. In terms of tissue damage he describes his pain as pulsing throbbing and pounding sensation. He had x-rays and MRIs of the lumbar spine in [facility]. He never had any physical therapy. He never had any injections. His past medical history is significant for history of ascending aortic aneurysm he denies smoking cigarettes drinking alcohol he denies recreational drugs. He drinks 1 cup of coffee every other day. [facility] Medical History (Updated 01/18/25 @ 15:08 by Brett Joiner MD) Weight loss, unintentional Unsteady gait Spinal stenosis Rosacea Reflux gastritis Afib Obesity Osteoarthritis Nephrolithiasis Mixed hyperlipidemia Hypercoagulable state Hematochezia Health care maintenance Headache due to trauma HTN (hypertension) Gout First degree heart block Erectile dysfunction CAD (coronary artery disease) Constipation Ascending aortic aneurysm Surgical History (Updated 12/01/24 @ 09:57 by GUADALUPE Canales) H/O hernia repair Hx of appendectomy H/O arthroscopy of knee History of arthroplasty of knee S/P cardiac catheterization Family History (Updated 12/01/24 @ 10:15 by Marnie I Gomez, RMA) Mother Alzheimer disease Father Alcoholism CKD (chronic kidney disease) Myocardial infarct Social History (Updated 12/01/24 @ 09:54 by GUADALUPE Canales) Alcohol intake: never Patient Tobacco Use Status: Never used Tobacco Review of Systems Const All systems reviewed & are unremarkable except as noted in HPI and below ENT Reports Normal hearing present Neuro Reports Normal hearing present, Denies Abnormal speech present, Denies confusion and Denies Sensory deficit (Neuro) Psych Denies confusion Physical Exam Vital Signs: Last Vital Signs Pulse 69 01/18/25 14:37 Resp 16 01/18/25 14:37 BP 127/75 01/18/25 14:37 Pulse Ox 95 01/18/25 14:37 Oxygen Delivery Method Room Air 01/18/25 14:37 BMI result Body Mass Index 29.9 Const General: no acute distress; No confusion Orientation/consciousness: patient oriented x3 and No confusion Eyes General: appearance normal, both eyes and all related structures Pupils: Equal, round and reactive pupils present EOM: EOMs intact bilaterally Neck Neck: Yes full ROM Chest Chest palpation & inspection: normal inspection of the chest Resp Effort & Inspection: normal respiratory effort, able to speak in complete sentences, normal respiratory pattern, no audible wheezes and no cough Cardio Jugular venous distension: no JVD GI Inspection: Yes normal to inspection Back/Spine/Pelvis Other: Denies tenderness on palpation in paraspinal spinal region lumbar spine. Denies tenderness on palpation on the bilateral sacroiliac joints. Loading test is positive on the left and negative on the right. SLR is negative bilaterally. Socrates test is negative bilaterally. Waddling gait is noted. Neuro General: patient oriented x3, gait normal and No confusion Cranial nerves: Yes CN's II-XII intact bilaterally, Yes Equal, round and reactive pupils present, Yes Normal hearing present and Yes Ability to bilaterally elevate shoulders present Speech: No Abnormal speech present Gait exam (Neuro): Normal gait present Motor exam (neuro): 5/5 motor strength present throughout Sensory Exam: No Sensory deficit (Neuro) Extrem General: No pedal edema Psych Speech and movement: Normal speech and movement present Affect: normal affect Attitude: cooperative Thought process: Normal thought process present Thought content: Normal thought content present Insight: Good insight present (Psych) Judgement: Good judgement present (Psych) Assessment & Plan Assessment & Plan (1) Spondylosis of lumbar region without myelopathy or radiculopathy: Code(s): M47.816 - Spondylosis without myelopathy or radiculopathy, lumbar region Category: Medical (2) Chronic pain syndrome: Code(s): G89.4 - Chronic pain syndrome Category: Medical Plan This patient is suffering from spondylosis of the lumbar spine without myelopathy or radiculopathy. I will schedule him for diagnostic medial branch block to confirm or deny this diagnosis. The level will be L3, L4, dorsal ramus L5. After that I will schedule him for the follow-up appointment and we will decide what to offer to him to treat his pain. Coding Level of Care Code New Pt Level 3 (88417) Diagnoses Spondylosis of lumbar region without myelopathy or radiculopathy M47.816 Chronic pain syndrome G89.4
[2025-01-18 14:37] VITALS: BP 127/75; PULSE 69; RESP 16; O2SAT 95; BMI 29.9
== END 2025-01-18 15:03 | disposition home or self-care (01) ==
LOC: HO.PMC 14:34
PROVIDERS: PCP Internal Medicine; Referring Provider Neurological Surgery; Visit Provider Anesthesiology
DX: M47.816 Spondylosis without myelopathy or radiculopathy, lumbar region (principal); G89.4 Chronic pain syndrome
CPT/HCPCS: 99203

== ENCOUNTER → 2025-01-18 14:34 | Outpatient (BNVA) | payer MEDICARE, OTHER, SELFPAY | PROVIDERS: PCP Internal Medicine; Referring Provider Neurological Surgery; Visit Provider Anesthesiology | DX: M47.816 Spondylosis without myelopathy or radiculopathy, lumbar region (principal); G89.4 Chronic pain syndrome | CPT/HCPCS: 99202 ==

== ENCOUNTER → 2025-02-03 14:24 | Outpatient (BNVA) | payer OTHER, MEDICARE, SELFPAY | PROVIDERS: PCP Internal Medicine; Visit Provider Neurological Surgery ==

== ENCOUNTER 2025-04-11 10:11 | Outpatient (REF) | payer OTHER, MEDICARE, SELFPAY ==
--- NOTE | ~2025-04-11 | FL_ITS ---
EXAMINATION: FL GUIDANCE ONLY HISTORY: M47.816 - Spondylosis without myelopathy or radiculopathy, lumbar region COMPARISON: None available. TECHNIQUE: Fluoroscopy time: 0.5 minutes. Cumulative Dose: 10.4 mGy. DAP: 0.182 mGym2 Images: 12. FINDINGS: Fluoroscopic spot films of the lumbar spine in the AP projection demonstrate needles and contrast material in the regions of the bilateral L3-4, L4-5, and L5-S1 facet joints. FL/FL guidance in treatment room IMPRESSION: Fluoroscopy during procedure. Please see procedure report for additional information. Electronically signed by: Miguel Angel Moise MD 04/12/2025 08:38 AM EDT
== END 2025-04-11 10:12 | disposition home or self-care (01) ==
LOC: CF 10:11
PROVIDERS: Visit Provider Anesthesiology
DX: M47.816 Spondylosis without myelopathy or radiculopathy, lumbar region (principal)
CPT/HCPCS: 64493; 64494; J2003; J2795; Q9967

== ENCOUNTER 2025-04-11 13:09 | Outpatient (AMB) | payer OTHER, MEDICARE, SELFPAY ==
--- NOTE | 2025-04-11 13:29 | MHC.OFFVIS ---
Vital Signs 04/11/25 13:30 Height 6 ft 2 in Weight 222 lb BMI 28.5 BP 131/72 Blood Pressure Location Lt brachial Position Sitting Respiration 18 Pulse 68 Pulse Source Pulse Oximeter Pulse Oximetry (%) 95 Oxygen Delivery Method Room Air Intake Visit Reasons: BILATERAL DIAGNOSTIC L3, L4, DRL5 MBB Procedural Nurse Required: No Allergies atorvastatin Allergy (Severe, Verified 01/18/25 14:39) Bodyache and Pain PFSH Medical History (Updated 01/18/25 @ 15:08 by Brett Joiner MD) Weight loss, unintentional Unsteady gait Spinal stenosis Rosacea Reflux gastritis Afib Obesity Osteoarthritis Nephrolithiasis Mixed hyperlipidemia Hypercoagulable state Hematochezia Health care maintenance Headache due to trauma HTN (hypertension) Gout First degree heart block Erectile dysfunction CAD (coronary artery disease) Constipation Ascending aortic aneurysm Surgical History (Updated 12/01/24 @ 09:57 by GUADALUPE Canales) H/O hernia repair Hx of appendectomy H/O arthroscopy of knee History of arthroplasty of knee S/P cardiac catheterization Family History (Updated 12/01/24 @ 10:15 by GUADALUPE Canales) Mother Alzheimer disease Father Alcoholism CKD (chronic kidney disease) Myocardial infarct Social History (Updated 12/01/24 @ 09:54 by GUADALUPE Canales) Alcohol intake: never Patient Tobacco Use Status: Never used Tobacco Physical Exam Vital Signs: Last Vital Signs Pulse 68 04/11/25 13:30 Resp 18 04/11/25 13:30 BP 131/72 04/11/25 13:30 Pulse Ox 95 04/11/25 13:30 Oxygen Delivery Method Room Air 04/11/25 13:30 BMI result Body Mass Index 28.5 Assessment & Plan Assessment & Plan (1) Spondylosis of lumbar region without myelopathy or radiculopathy: Code(s): M47.816 - Spondylosis without myelopathy or radiculopathy, lumbar region Category: Medical Plan Diagnostic medial branch block L3,L4 dorsal ramus L5 bilateral.? ? ?Informed consent was explained to the patient. All questions were explained and? answered.? The patient was taken inside the operating room where she was positioned prone on the operating table. Time-out was performed delineating correct site, side, the nature of the procedure, patient's allergy, . All operating room staff was participating in OR time-out procedure. ? ? The lower back was prepped with ChloraPrep and draped with sterile towels.? C-arm was brought over the operating field and sq picture of L4-, L5 vertebra and S1 AREA were delineated on the screen.? Point of interest were delineated as confluence of superior articular process of L4 and L5 vertebra bilaterally with corresponding transverse processes as well as confluence of the sacral alae bilaterally with superior articular process of S1.? The projection of the point of interest to the skin were injected with the small amount of local anesthetic lidocaine 2% mixed with ropivacaine 0.5% 1-1 approcimately 1 cc.? After that 22 gauge 3.5 inch spinal needle was driven sequentially to the points of interest in tunnel vision fashion. After needles gently contacted the bone at the point of interests the needle was injected with small amount of the contrast.? The injection of the contrast did not demonstrate any intravascular or intrathecal spread of the contrast.? After that injection of the? ropivacaine 0.5%-1cc was performed at each needle location. ?after that the needles were removed and Bandaids were applied. Orders: Orders FL guidance in treatment room Today M47.816 - Spondylosis without myelopathy or radiculopathy, lumbar region Coding Level of Care Code Procedure Only Diagnoses Spondylosis of lumbar region without myelopathy or radiculopathy M47.816
[2025-04-11 13:30] VITALS: BP 131/72; PULSE 68; RESP 18; O2SAT 95; BMI 28.5
== END 2025-04-11 14:09 | disposition home or self-care (01) ==
LOC: HO.PMCPRC 13:09
PROVIDERS: PCP Internal Medicine; Visit Provider Anesthesiology
DX: M47.816 Spondylosis without myelopathy or radiculopathy, lumbar region (principal)
CPT/HCPCS: 64493; 64494

== ENCOUNTER 2025-04-13 09:11 | Outpatient (AMB) | payer OTHER, MEDICARE, SELFPAY ==
--- NOTE | 2025-04-13 09:17 | MHC.OFFVIS ---
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 Before procedure he had pain 8 to 9/10. After the procedure the pain was completely eliminated 100% pain relief. In fact patient continues to experience very little if any pain in his lower back 72 hours after the procedure. He reports better activity, better mobility, better social interactions. He is very satisfied with the procedure. I offered him he accept to go for sprint PNS bilateral L5 possible L4 possible S1. He will be scheduled for this procedure accordingly. He has no pain now, I recommended him that in several weeks from now when my staff will be calling him to schedule an appointment and invite him for the procedure-if he has no pain to cancel procedure or reschedule it. Prior: complains on lower back pain which started 3 years ago. Relates pain to heavy lifting while working for [employer]. He has [employer] . He went for consult with Dr. Msaters, nothing was found neurosurgical to be significant cause for operation. waddling gait and dizziness was noted. Patient was sent for CT scan and it demonstrated hydrocephalus. The patient is waiting for appointment with cranial neurosurgeon in [facility]. denies radiation of the pain in bilateral lower extremities. t heat applications topical medications and oral medications improve his pain minimally. He had x-rays and MRIs of the lumbar spine in [facility]. He never had any injections. His past medical history is significant for history of ascending aortic aneurysm he denies smoking cigarettes drinking alcohol he denies recreational drugs. [facility] Medical History (Updated 01/18/25 @ 15:08 by Brett Joiner MD) Weight loss, unintentional Unsteady gait Spinal stenosis Rosacea Reflux gastritis Afib Obesity Osteoarthritis Nephrolithiasis Mixed hyperlipidemia Hypercoagulable state Hematochezia Health care maintenance Headache due to trauma HTN (hypertension) Gout First degree heart block Erectile dysfunction CAD (coronary artery disease) Constipation Ascending aortic aneurysm Surgical History (Updated 12/01/24 @ 09:57 by GUADALUPE Canales) H/O hernia repair Hx of appendectomy H/O arthroscopy of knee History of arthroplasty of knee S/P cardiac catheterization Family History (Updated 12/01/24 @ 10:15 by GUADALUPE Canales) Mother Alzheimer disease Father Alcoholism CKD (chronic kidney disease) Myocardial infarct Social History (Updated 12/01/24 @ 09:54 by GUADALUPE Canales) Alcohol intake: never Patient Tobacco Use Status: Never used Tobacco Review of Systems Const All systems reviewed & are unremarkable except as noted in HPI and below ENT Reports Normal hearing present Neuro Reports Normal hearing present, Denies Abnormal speech present, Denies confusion and Denies Sensory deficit (Neuro) Psych Denies confusion Physical Exam Vital Signs: Last Vital Signs Pulse 86 04/13/25 09:18 Resp 20 04/13/25 09:18 BP 149/91 H 04/13/25 09:18 Pulse Ox 98 04/13/25 09:18 Oxygen Delivery Method Room Air 04/13/25 09:18 BMI result Body Mass Index 29.9 Const General: no acute distress; No confusion Orientation/consciousness: patient oriented x3 and No confusion Eyes General: appearance normal, both eyes and all related structures Pupils: Equal, round and reactive pupils present EOM: EOMs intact bilaterally Neck Neck: Yes full ROM Chest Chest palpation & inspection: normal inspection of the chest Resp Effort & Inspection: normal respiratory effort, able to speak in complete sentences, normal respiratory pattern, no audible wheezes and no cough Cardio Jugular venous distension: no JVD GI Inspection: Yes normal to inspection Back/Spine/Pelvis Other: Denies tenderness on palpation in paraspinal spinal region lumbar spine. Denies tenderness on palpation on the bilateral sacroiliac joints. Loading test is positive on the left and negative on the right. SLR is negative bilaterally. Socrates test is negative bilaterally. Waddling gait is noted. Neuro General: patient oriented x3, gait normal and No confusion Cranial nerves: Yes CN's II-XII intact bilaterally, Yes Equal, round and reactive pupils present, Yes Normal hearing present and Yes Ability to bilaterally elevate shoulders present Speech: No Abnormal speech present Gait exam (Neuro): Normal gait present Motor exam (neuro): 5/5 motor strength present throughout Sensory Exam: No Sensory deficit (Neuro) Extrem General: No pedal edema Psych Speech and movement: Normal speech and movement present Affect: normal affect Attitude: cooperative Thought process: Normal thought process present Thought content: Normal thought content present Insight: Good insight present (Psych) Judgement: Good judgement present (Psych) Assessment & Plan Assessment & Plan (1) Spondylosis of lumbar region without myelopathy or radiculopathy: Code(s): M47.816 - Spondylosis without myelopathy or radiculopathy, lumbar region Category: Medical (2) Chronic pain syndrome: Code(s): G89.4 - Chronic pain syndrome Category: Medical Plan This patient is suffering from spondylosis of the lumbar spine without myelopathy or radiculopathy. Diagnostic injection with complete 100% pain relief for 72 hours confirm my diagnosis. I offered him sprint PNS and patient agreed to go for this procedure. Risks and benefits were explained to the patient. I recommended him to postpone or cancel the procedure if his pain is still at 0 at the time of the scheduling. He has hydrocephalus and waiting for consultation with brain neurosurgeon. Patient Instructions: I here by testify that I spent 30 minute in conversation with this patient as well as planning his care, evaluating prior records and organizing this note Coding Level of Care Code Est Pt Level 4 (42492) Diagnoses Spondylosis of lumbar region without myelopathy or radiculopathy M47.816 Chronic pain syndrome G89.4
[2025-04-13 09:18] VITALS: BP 149/91; PULSE 86; RESP 20; O2SAT 98; BMI 29.9
== END 2025-04-13 09:27 | disposition home or self-care (01) ==
PROVIDERS: PCP Internal Medicine; Visit Provider Anesthesiology
DX: M47.816 Spondylosis without myelopathy or radiculopathy, lumbar region (principal); G89.4 Chronic pain syndrome
CPT/HCPCS: 99214

== ENCOUNTER → 2025-04-13 09:11 | Outpatient (BNVA) | payer OTHER, MEDICARE, SELFPAY | PROVIDERS: PCP Internal Medicine; Visit Provider Anesthesiology | DX: M47.816 Spondylosis without myelopathy or radiculopathy, lumbar region (principal); G89.4 Chronic pain syndrome | CPT/HCPCS: 99212 ==

== ENCOUNTER 2025-09-06 14:08 | Outpatient (AMB) | payer OTHER, MEDICARE, SELFPAY ==
[2025-09-06 14:11] VITALS: BP 117/67; PULSE 83; RESP 16; O2SAT 93; BMI 28.9
--- NOTE | 2025-09-06 14:11 | MHC.OFFVIS ---
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 He still reports excellent pain relief. He still reports minimal moderate pain 4 to 5/10. It was on diagnostic injection only. His insurance company considers that the sprint PNS I offered the patient in the past is not medically necessary. The patient is asking me to repeat the diagnostic injection. I offered him instead therapeutic bilateral medial branch block L3, L4, L5 using only Decadron. Patient will schedule the procedure after the procedure on his heart. Prior: after diagnostic medial branch block L3, L4, dorsal ramus L5 bilateral. Before procedure he had pain 8 to 9/10. After the procedure the pain was completely eliminated 100% pain relief. In fact patient continues to experience very little if any pain in his lower back 72 hours after the procedure. He reports better activity, better mobility, better social interactions. He is very satisfied with the procedure. I offered him he accept to go for sprint PNS bilateral L5 possible L4 possible S1. He will be scheduled for this procedure accordingly. He has no pain now, I recommended him that in several weeks from now when my staff will be calling him to schedule an appointment and invite him for the procedure-if he has no pain to cancel procedure or reschedule it. Prior: complains on lower back pain which started 3 years ago. Relates pain to heavy lifting while working for [employer]. He has [employer] . He went for consult with Dr. Masters, nothing was found neurosurgical to be significant cause for operation. waddling gait and dizziness was noted. Patient was sent for CT scan and it demonstrated hydrocephalus. The patient is waiting for appointment with cranial neurosurgeon in [facility]. denies radiation of the pain in bilateral lower extremities. t heat applications topical medications and oral medications improve his pain minimally. He had x-rays and MRIs of the lumbar spine in [facility] [employer]. He never had any injections. His past medical history is significant for history of ascending aortic aneurysm he denies smoking cigarettes drinking alcohol he denies recreational drugs. [facility] Medical History (Updated 01/18/25 @ 15:08 by Brett Joiner MD) Weight loss, unintentional Unsteady gait Spinal stenosis Rosacea Reflux gastritis Afib Obesity Osteoarthritis Nephrolithiasis Mixed hyperlipidemia Hypercoagulable state Hematochezia Health care maintenance Headache due to trauma HTN (hypertension) Gout First degree heart block Erectile dysfunction CAD (coronary artery disease) Constipation Ascending aortic aneurysm Surgical History (Updated 12/01/24 @ 09:57 by GUADALUPE Canales) H/O hernia repair Hx of appendectomy H/O arthroscopy of knee History of arthroplasty of knee S/P cardiac catheterization Family History (Updated 12/01/24 @ 10:15 by GUADALUPE Canales) Mother Alzheimer disease Father Alcoholism CKD (chronic kidney disease) Myocardial infarct Social History (Updated 12/01/24 @ 09:54 by GUADALUPE Canales) Alcohol intake: never Patient Tobacco Use Status: Never used Tobacco Review of Systems Const All systems reviewed & are unremarkable except as noted in HPI and below ENT Reports Normal hearing present Neuro Reports Normal hearing present, Denies Abnormal speech present, Denies confusion and Denies Sensory deficit (Neuro) Psych Denies confusion Physical Exam Vital Signs: Last Vital Signs Pulse 83 09/06/25 14:11 Resp 16 09/06/25 14:11 BP 117/67 09/06/25 14:11 Pulse Ox 93 09/06/25 14:11 Oxygen Delivery Method Room Air 09/06/25 14:11 BMI result Body Mass Index 28.9 Const General: no acute distress; No confusion Orientation/consciousness: patient oriented x3 and No confusion Eyes General: appearance normal, both eyes and all related structures Pupils: Equal, round and reactive pupils present EOM: EOMs intact bilaterally Neck Neck: Yes full ROM Chest Chest palpation & inspection: normal inspection of the chest Resp Effort & Inspection: normal respiratory effort, able to speak in complete sentences, normal respiratory pattern, no audible wheezes and no cough Cardio Jugular venous distension: no JVD GI Inspection: Yes normal to inspection Back/Spine/Pelvis Other: Denies tenderness on palpation in paraspinal spinal region lumbar spine. Denies tenderness on palpation on the bilateral sacroiliac joints. Loading test is positive on the left and negative on the right. SLR is negative bilaterally. Socrates test is negative bilaterally. Waddling gait is noted. Neuro General: patient oriented x3, gait normal and No confusion Cranial nerves: Yes CN's II-XII intact bilaterally, Yes Equal, round and reactive pupils present, Yes Normal hearing present and Yes Ability to bilaterally elevate shoulders present Speech: No Abnormal speech present Gait exam (Neuro): Normal gait present Motor exam (neuro): 5/5 motor strength present throughout Sensory Exam: No Sensory deficit (Neuro) Extrem General: No pedal edema Psych Speech and movement: Normal speech and movement present Affect: normal affect Attitude: cooperative Thought process: Normal thought process present Thought content: Normal thought content present Insight: Good insight present (Psych) Judgement: Good judgement present (Psych) Assessment & Plan Assessment & Plan (1) Spondylosis of lumbar region without myelopathy or radiculopathy: Code(s): M47.816 - Spondylosis without myelopathy or radiculopathy, lumbar region Category: Medical (2) Chronic pain syndrome: Code(s): G89.4 - Chronic pain syndrome Category: Medical Plan This patient is suffering from spondylosis of the lumbar spine without myelopathy or radiculopathy. Diagnostic medial branch block resulted in 4 months of complete pain relief. The patient requests me to repeat this procedure. I will perform diagnostic medial branch block L3, L4, dorsal ramus L5 bilateral with dexamethasone. Patient is scheduled for minor cardiac procedure on 10/04/2025. He will schedule the procedure with me after the cardiac procedure. Coding Level of Care Code Est Pt Level 3 (43210) Diagnoses Spondylosis of lumbar region without myelopathy or radiculopathy M47.816 Chronic pain syndrome G89.4
== END 2025-09-06 14:25 | disposition home or self-care (01) ==
LOC: HO.PMC 14:09
PROVIDERS: PCP Internal Medicine; Visit Provider Anesthesiology
DX: M47.816 Spondylosis without myelopathy or radiculopathy, lumbar region (principal); G89.4 Chronic pain syndrome
CPT/HCPCS: 99213

== ENCOUNTER → 2025-09-06 14:08 | Outpatient (BNVA) | payer OTHER, MEDICARE, SELFPAY | PROVIDERS: PCP Internal Medicine; Visit Provider Anesthesiology | DX: M47.816 Spondylosis without myelopathy or radiculopathy, lumbar region (principal); G89.4 Chronic pain syndrome | CPT/HCPCS: 99212 ==